=== PATIENT | male | born 1940 | race Caucasian/White ===

== ENCOUNTER → 2017-05-04 08:07 | Outpatient (CLI) | payer MEDICARE, BC ==
[2012-07-02 12:29] VITALS: BMI 25.1
== END | disposition home or self-care (01) ==
LOC: D.MRI 04-28 15:00
DX: R97.20 Elevated prostate specific antigen [PSA] (principal)

== ENCOUNTER → 2017-12-21 13:37 | Outpatient (CLI) | payer MEDICARE, BC ==
[2012-07-02 12:29] VITALS: BMI 25.1
== END | disposition home or self-care (01) ==
LOC: D.CT 13:30
DX: R93.5 Abnormal findings on diagnostic imaging of other abdominal regions, including retroperitoneum (principal)

== ENCOUNTER 2018-02-25 09:00 | Inpatient (IN) | payer MEDICARE, BC ==
[~2018-02-25] VITALS: Ht 182.9 cm; Wt 87.1 kg
--- NOTE | ~2018-02-25 | MORECARE ---
CASE MANAGEMENT DISCHARGE SUMMARY PATIENT: YOSI CARMONA UNIT: [id number] ADM DATE: 02/26/18 AGE: 77 : 42 SEX: M ROOM/BED: D.2203 AUTHOR: GENESIS LAM PHYSICIAN: REFERRING PHYSICIAN: SARIKA MORALES MD DATE OF SERVICE: 03/03/18 Discharge Plan Patient Name: YOSI CARMONA Facility: [facility]:[place] : 1940 Planned Disposition: Home Anticipated Discharge Date: Discharge Date: Expected LOS: Initial Reviewer: [email or web address] Initial Review Date: 02/26/2018 Generated: 03/03/18 12:41 pm Comments DCP- Discharge Planning Updated by [email or web address]: Amairani Welch on 03/03/18 10:[address] Patient Name: YOSI CARMONA Encounter No: [id number] : 1940 Primary Insurance: MEDICARE A & B Anticipated DC Date: Planned Disposition: Home External Planned Provider: : DCP follow-up note: Patient and family in agreement with discharge plan. No changes to plan. Case management will follow and assist as needed. Amairani Welch DCP- Discharge Planning Updated by [email or web address]: Amairani Welch on 03/02/18 11:[address] Patient Name: YOSI CARMONA Admission Status: Elective Accout number: [id number] Admission Date: 02-26-2018 : 1940 Admission Diagnosis:POLYP OF COLON Attending: SARIKA MORALES Current LOS: 4 Anticipated DC Date: Planned Disposition: Home Primary Insurance: MEDICARE A & B Discharge Planning Comments: CM met with patient to assess discharge planning needs. Patient stated that he is independent with his care at home. His will be his driver guide home. He does not use any DME or HH services and does not think he will need anything when he is discharged home. [facility] served and explained. CM will continue to follow and assist with DC planning Hospitalist Physician: Amairani Welch DCPIA - Discharge Planning Initial Assessment Updated by [email or web address]: Amairani Welch on 03/02/18 12:20 pm * Is the patient Alert and Oriented? Yes * How many steps to enter\exit or inside your home? * PCP ASHISH * Pharmacy [address] * Preadmission Environment Home with Family * ADLs Independent * Equipment None * List name and contact numbers for known caregivers / representatives who currently or will assist patient after discharge: DAVINA () [phone] * Verbal permission to speak to the caregivers and representatives has been obtained from the patient. N/A * Community resources currently utilized None * Additional services required to return to the preadmission environment? No * Can the patient safely return to the preadmission environment? Yes * Has this patient been hospitalized within the prior 30 days at any hospital? No Coverage Notice Reviewer: [email or web address] Jana Welch Notice Issued Date-Time: 03/02/2018 11:55 Notice Type: IM Discharge Notice Notice Delivered To: Patient Relationship to Patient: Tube Laser Operator Name: Delivery Method: HAND - Hand Delivered Mary Days: Prior Verbal Notification: Recipient Understood Notice: Yes Recipient Signature: Yes Med Rec Note Co-signed by Attending: Coverage Notice Comment: Last DP export: 03/02/18 11:35 Patient Name: YOSI CARMONA Page [id number] at 1141 All edits/amendments must be made on the electronic document DICTATION DATE: 03/03/18 1141 CINDER MAN: DANIEL 03/03/18 1141 RPT#: [id number] DC DATE: STATUS: ADM IN [facility] [address] [place] [address] END OF REPORT
--- NOTE | ~2018-02-25 | MORECARE ---
CASE MANAGEMENT DISCHARGE SUMMARY PATIENT: YOSI CARMONA UNIT: [id number] ADM DATE: 02/26/18 AGE: 77 : 42 SEX: M ROOM/BED: D.2203 AUTHOR: GENESIS LAM PHYSICIAN: REFERRING PHYSICIAN: SARIKA MORALES MD DATE OF SERVICE: 03/02/18 Discharge Plan Patient Name: YOSI CARMONA Facility: [facility]:[place] : 1940 Planned Disposition: Home Anticipated Discharge Date: Discharge Date: Expected LOS: Initial Reviewer: [email or web address] Initial Review Date: 02/26/2018 Generated: 03/02/18 1:35 pm Comments DCP- Discharge Planning Updated by [email or web address]: Amairani Welch on 03/02/18 11:[address] Patient Name: YOSI CARMONA Admission Status: Elective Accout number: [id number] Admission Date: 02-26-2018 : 1940 Admission Diagnosis:POLYP OF COLON Attending: SARKIA MORALES Current LOS: 4 Anticipated DC Date: Planned Disposition: Home Primary Insurance: MEDICARE A & B Discharge Planning Comments: CM met with patient to assess discharge planning needs. Patient stated that he is independent with his care at home. His will be his winch driver home. He does not use any DME or HH services and does not think he will need anything when he is discharged home. [facility] served and explained. CM will continue to follow and assist with DC planning Toll Lineman: Amairani Welch DCPIA - Discharge Planning Initial Assessment Updated by [id number]: Amairani Welch on 03/02/18 12:20 pm * Is the patient Alert and Oriented? Yes * How many steps to enter\exit or inside your home? * PCP ASHISH * Pharmacy [address] * Preadmission Environment Home with Family * ADLs Independent * Equipment None * List name and contact numbers for known caregivers / representatives who currently or will assist patient after discharge: DAVINA () [phone] * Verbal permission to speak to the caregivers and representatives has been obtained from the patient. N/A * Community resources currently utilized None * Additional services required to return to the preadmission environment? No * Can the patient safely return to the preadmission environment? Yes * Has this patient been hospitalized within the prior 30 days at any hospital? No Coverage Notice Reviewer: [id number] Jana Welch Notice Issued Date-Time: 03/02/2018 11:55 Notice Type: IM Discharge Notice Notice Delivered To: Patient Relationship to Patient: Phlebotomy Tech Name: Delivery Method: HAND - Hand Delivered Mary Days: Prior Verbal Notification: Recipient Understood Notice: Yes Recipient Signature: Yes Med Rec Note Co-signed by Attending: Coverage Notice Comment: Last DP export: 03/02/18 11:27 Patient Name: YOSI CARMONA Page [id number] at 1235 All edits/amendments must be made on the electronic document DICTATION DATE: 03/02/18 1235 COMPENSATION AND BENEFITS MANAGER: DANIEL 03/02/18 1235 RPT#: [id number] DC DATE: STATUS: ADM IN [facility] [address] [place] [address] END OF REPORT
--- NOTE | ~2018-02-25 | MORECARE ---
CASE MANAGEMENT DISCHARGE SUMMARY PATIENT: YOSI CARMONA UNIT: [id number] ADM DATE: 02/26/18 AGE: 77 : 42 SEX: M ROOM/BED: D.2203 AUTHOR: GENESIS LAM PHYSICIAN: REFERRING PHYSICIAN: SARIKA MORALES MD DATE OF SERVICE: 03/02/18 Discharge Plan Patient Name: YOSI CARMONA Facility: [facility]:[place] : 1940 Planned Disposition: Home Anticipated Discharge Date: Discharge Date: Expected LOS: Initial Reviewer: [email or web address] Initial Review Date: 02/26/2018 Generated: 03/02/18 1:27 pm DCPIA - Discharge Planning Initial Assessment Updated by [email or web address]: Amairani Welch on 03/02/18 12:20 pm * Is the patient Alert and Oriented? Yes * How many steps to enter\exit or inside your home? * PCP ASHISH * Pharmacy [address] * Preadmission Environment Home with Family * ADLs Independent * Equipment None * List name and contact numbers for known caregivers / representatives who currently or will assist patient after discharge: DAVINA () [phone] * Verbal permission to speak to the caregivers and representatives has been obtained from the patient. N/A * Community resources currently utilized None * Additional services required to return to the preadmission environment? No * Can the patient safely return to the preadmission environment? Yes * Has this patient been hospitalized within the prior 30 days at any hospital? No Coverage Notice Reviewer: [id number] - Amairani Welch Notice Issued Date-Time: 03/02/2018 11:55 Notice Type: IM Discharge Notice Notice Delivered To: Patient Relationship to Patient: Salesperson Flying Squad Name: Delivery Method: HAND - Hand Delivered Mary Days: Prior Verbal Notification: Recipient Understood Notice: Yes Recipient Signature: Yes Med Rec Note Co-signed by Attending: Coverage Notice Comment: Last DP export: 03/02/18 11:19 Patient Name: YOSI CARMONA Page [id number] at 1227 All edits/amendments must be made on the electronic document DICTATION DATE: 03/02/18 1227 CRIB TENDER: DM 03/02/18 1227 RPT#: [id number] DC DATE: STATUS: ADM IN [facility] [address] [place] [address] END OF REPORT
--- NOTE | ~2018-02-25 | MORECARE ---
CASE MANAGEMENT DISCHARGE SUMMARY PATIENT: YOSI CARMONA UNIT: [id number] ADM DATE: 02/26/18 AGE: 77 : 42 SEX: M ROOM/BED: D.2203 AUTHOR: GENESIS LAM PHYSICIAN: REFERRING PHYSICIAN: SARIKA MORALES MD DATE OF SERVICE: 03/02/18 Discharge Plan Patient Name: YOSI CARMONA Facility: [facility]:[place] : 1940 Planned Disposition: Home Anticipated Discharge Date: Discharge Date: Expected LOS: Initial Reviewer: [email or web address] Initial Review Date: 02/26/2018 Generated: 03/02/18 1:19 pm Coverage Notice Reviewer: [id number] - Amairani Welch Notice Issued Date-Time: 03/02/2018 11:55 Notice Type: IM Discharge Notice Notice Delivered To: Patient Relationship to Patient: Licensed Sales Assistant Name: Delivery Method: HAND - Hand Delivered Mary Days: Prior Verbal Notification: Recipient Understood Notice: Yes Recipient Signature: Yes Med Rec Note Co-signed by Attending: Coverage Notice Comment: Patient Name: YOSI CARMONA Page [id number] at 1219 All edits/amendments must be made on the electronic document DICTATION DATE: 03/02/181217 ACCOUNT MANAGEMENT ASSISTANT: DANIEL 03/02/181217 RPT#: [id number] DC DATE: STATUS: ADM IN [place] [address] [place] [address] END OF REPORT
--- NOTE | ~2018-02-25 | OP ---
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 Extensive intra-abdominal adhesions, multiple midline incisional hernias, which are incarcerated with omental fat. PROCEDURE: Laparoscopic cecectomy with conversion to hand-assisted laparoscopic surgery - right colectomy. SURGEON: Sarika Morales MD SURFACER: None. BLOOD LOSS: 100 cc. ANESTHESIA: General. COMPLICATIONS: None. The risks, possible complications and alternatives to procedure were explained to the patient. He elects to proceed. The discussion specifically included, but was not limited to, bleeding requiring emergency reoperation, infection, colostomy formation, possible need for chemotherapy. OPERATIVE COURSE: The patient was conveyed to the operating room electively on 02/27/2018. General anesthesia was induced by the anesthesia staff. The abdomen was sterilely prepped and draped. A small skin erlin was accomplished in the left upper quadrant. Through the skin erlin, a Veress needle was advanced. CO2 insufflation was begun. Once a sufficient pneumoperitoneum had been achieved, a 5-mm trocar was inserted through this incision. Under direct internal vision utilizing a television camera, another 5-mm trocar was inserted this time in the left lower quadrant. There were numerous intra-abdominal adhesions. I began to take these adhesions down. Portions of incarcerated omental fat within hernias were reduced. I did not attempt to perform a hernia repair as this would have ruin necessitated either a midline incision and/or mesh and this will be contraindicated in this case where there is going to be division of the large intestine. I began to take down these adhesions. Once I freed up enough adhesions around the umbilicus, I accomplished an incision through the patient's midline scar. Sharp dissection was carried down through the area where there was a hernia defect. Through this hernia defect, I advanced a 12-mm trocar. I then began to incise along the right white line of Toldt. Utilizing the Harmonic scalpel, I took down the mesoappendix. I grasped the appendix and retracted caudad and then stapled across the cecum just inferior to the ileocecal valve with an Endo-XIOMY type stapler utilizing blue loads. I then placed this appendix and cecectomy specimen within a retrieval bag and withdrew it through the 12-mm trocar site. I opened up the specimen on the back table and it did not contain OPERATIVE REPORT [id number] YOSI CARMOAN the polyp that we were going after. I then chose to proceed with a hand-assisted right colectomy. I rescrubbed and redraped. A transverse incision was accomplished between the right costal margin and the anterior superior iliac spine. Sharp dissection was carried down through skin and subcutaneous tissues. I then cleaned the subcutaneous tissues from the underlying external oblique muscle and fascia. I then bluntly dissected down through the internal oblique and transversus abdominis muscles. The peritoneal cavity was entered sharply. An Randy retractor was placed. Over the Randy retractor, a Gelport was placed. Through the Gelport, I inserted my hand. I then continued my division along the right white line of Toldt. I took down some of the retroperitoneal adhesions at the hepatic flexure as well. I took off the Gelport. I exteriorized the right colon. I swept down the duodenum as well as the ureter, which were undamaged during the operation. A window was created in the mesentery of the small bowel. I stapled across the ileum with a XIOMY-75 stapler. I then created a window in the mesentery of the proximal transverse colon. I then stapled across the colon here with a XIOMY-75 stapler. The interposed mesentery was taken down with the Super Jaw EnSeal device, which were ligated and divided the mesentery and its vessels. I opened up the specimen on the back table. It did contain the polyp that we were concerned about, which was very close to the staple line from the cecectomy. I rescrubbed and redraped. I then brought the small bowel and the transverse colon into apposition and I sutured their antimesenteric borders together with interrupted 3-0 Vicryl sutures. I closed the mesenteric rent with a running #1 Vicryl. A small enterotomy and small colotomy were accomplished. Anvils of the XIOMY-75 stapler were advanced and then fired. The resulting intracolonic defect was closed with a single firing of the TA-60 stapler. I ensured the small bowel was not twisted on its mesentery. I irrigated and aspirated after returning the anastomosis to the abdominal cavity. There was no bleeding. The Randy retractor was removed. The internal oblique and transverse abdominis muscles were approximated with running #1 Vicryls. The external oblique muscle and aponeurosis were closed with running #1 Vicryls. The deep adipose tissue was closed with interrupted 3-0 Vicryls. The skin was closed with a running intracuticular 3-0 Vicryl. At the trocar site near the umbilicus, I closed the fascia with a horizontal mattress #1 Vicryl. The subdermis was approximated with interrupted 3-0 Vicryls. The skin was approximated with a running intracuticular 3-0 Vicryl. The other 2 trocar sites were closed with interrupted intracuticular 3-0 Vicryls. Benzoin and Steri-Strips were applied. The patient was then extubated and conveyed to post-anesthesia care unit where he was in stable condition. TRANSINT:[id number] Voice Confirmation ID: [id number] DOCUMENT ID: [id number] OPERATIVE REPORT [id number] YOSI CARMONA, SARIKA LEACH at 2213 CC: LUIS HINOJOSA DO, BOWEN, TIMOTHY E M.D. and HAILE ARROYO [id number] DICTATION DATE: 02/27/18 0359 DIGITAL MARKETING ASSOCIATE: 02/27/18 0620 ADM IN [facility] [address] [place] [address]
[~2018-02-25 09:00] MED LIST: BAYER CHEWABLE81 MG PO; LIPITOR80 MG PO; LOSARTAN-HCTZ1 EAC2 PO
[2018-02-25 09:14] LABS: HEMOGLOBIN 14.7 g/dL (13.5-17.5); MCHC 34.2 g/dL (31.0-37.0); MCV 96.6 fL (80.0-100.0); MEAN PLATELET VOLUME 11.2 fL (7.4-10.4); RBC 4.45 10x6/uL (4.20-6.10); RDW 14.3 % (11.5-14.5); WBC 6.8 10x3/uL (4.8-10.8)
[2018-02-26 12:27] VITALS: BP 141/72; BMI 26.9
[2018-02-26 22:15] VITALS: BMI 26.1
[2018-02-27] VITALS: BP 169/84
[2018-02-27 04:31] VITALS: BP 159/73
[2018-02-27 08:36] VITALS: BP 144/64
[2018-02-27 08:55] VITALS: Ht 182.9 cm; Wt 87.1 kg
[2018-02-27 13:15] VITALS: BP 151/57
[2018-02-27 16:44] VITALS: BP 157/72
[2018-02-27 20:00] VITALS: BP 139/65
[2018-02-28] VITALS (8 sets, daily range): BP systolic 119–183; BP diastolic 64–82
[2018-02-28 06:10] LABS: BASOPHILS 0.3 % (0-2); EOSINOPHILS 0.9 % (0-7); HEMATOCRIT 39.7 % (42.0-54.0); HEMOGLOBIN 13.1 g/dL (13.5-17.5); IMMATURE GRANULOCYTES 0.1 % (0-5); LYMPHOCYTES 25.9 % (15-50); MCH 32.3 pg (26.0-34.0); MEAN PLATELET VOLUME 11.2 fL (7.4-10.4); MONOCYTES 9.8 % (2-11); PLATELET COUNT 121 10x3/uL (130-400); RBC 4.05 10x6/uL (4.20-6.10); RDW 14.3 % (11.5-14.5); WBC 6.7 10x3/uL (4.8-10.8)
[2018-02-28 07:04] LABS: ALBUMIN 2.6 g/dL (3.4-5.0); ANION GAP 18.9 mmol/L (8-16); BILIRUBIN - TOTAL 0.59 mg/dL (0.2-1.3); CALCIUM 7.8 mg/dL (8.5-10.1); CARBON DIOXIDE 21.1 mmol/L (21.0-32.0); CREATININE - SERUM 1.2 mg/dL (0.6-1.3); MAGNESIUM - SERUM 1.5 mg/dL (1.8-2.4); PHOSPHOROUS 2.5 mg/dL (2.5-4.9); PROTEIN - SERUM 6.4 g/dL (6.4-8.2)
[2018-02-28 07:07] LABS: TROPONIN-I 0.079 ng/mL (0.000-0.060)
[2018-03-01] MEDS ORDERED: COZAAR100 MG PO (01:14)
[2018-03-01] MEDS ORDERED: HYDROCHLOROTH12.5 M1 PO (01:20)
[2018-03-01] MEDS ORDERED: LIPITOR10 MG PO (01:24)
[2018-03-01 04:00] VITALS: BP 186/85
[2018-03-01 08:42] VITALS: BP 187/75
[2018-03-01 12:25] VITALS: BP 170/87
[2018-03-01 16:27] VITALS: BP 137/80
[2018-03-01 20:00] VITALS: BP 152/82
[2018-03-02 05:00] VITALS: BP 164/83
[2018-03-02 08:21] VITALS: BP 140/62
[2018-03-02 12:28] VITALS: BP 127/64
[2018-03-02 16:50] VITALS: BP 122/53
[2018-03-02 20:00] VITALS: BP 151/68
[2018-03-03] VITALS: BP 140/64
[2018-03-03 04:00] VITALS: BP 156/80
[2018-03-03 08:34] VITALS: BP 136/72
[2018-03-03] MEDS ORDERED: HYDROCODON-ACE1 EAC7 PO (11:14)
== END 2018-03-03 13:04 | disposition home or self-care (01) | DRG 331 ==
LOC: D.MS 02-26 11:15 → D.SDCHOLD 02-26 11:15 → D.MS 02-26 22:03
PROVIDERS: Anesthesiology; Surgery
PROC: 0DTF0ZZ Resection of Right Large Intestine, Open Approach (ICD-10-PCS; principal; 2018-02-26)
DX: K63.5 Polyp of colon (principal); I10 Essential (primary) hypertension; K66.0 Peritoneal adhesions (postprocedural) (postinfection); K43.2 Incisional hernia without obstruction or gangrene

== ENCOUNTER → 2018-07-16 09:16 | Outpatient (CLI) | payer MEDICARE, BC ==
[2018-02-27 08:55] VITALS: BMI 26.0
[~2018-07-16 09:16] MED LIST changes: +COZAAR100 MG PO; +HYDROCHLOROTH12.5 M1 PO; +HYDROCODON-ACE1 EAC7 PO; +LIPITOR10 MG PO
== END | disposition home or self-care (01) ==
LOC: D.US 09:00
PROVIDERS: ATTEND Internal Medicine Gastroenterology
DX: R93.5 Abnormal findings on diagnostic imaging of other abdominal regions, including retroperitoneum (principal); K76.89 Other specified diseases of liver

== ENCOUNTER 2020-08-13 01:35 | Inpatient (IN) | payer MEDICARE, BC ==
[2020-08-13] VITALS (61 sets, daily range): BP systolic 82–162; BP diastolic 39–107; BMI 27.1
[~2020-08-13] VITALS: Ht 182.9 cm; Wt 99.8 kg
--- NOTE | 2020-08-13 01:45 | NUR ---
CODE SEPSIS PAGED
--- NOTE | 2020-08-13 01:45 | NUR ---
PT HAS LITER BAG LR HANGING PER EMS
[2020-08-13 02:32] LABS: BASOPHILS 0.2 % (0-2); EOSINOPHILS 0 % (0-7); HEMATOCRIT 40.2 % (42.0-54.0); HEMOGLOBIN 13.5 g/dL (13.5-17.5); LYMPHOCYTES 4.7 % (15-50); MCH 31.9 pg (26.0-34.0); MCHC 33.5 g/dL (31.0-37.0); MCV 95.2 fL (80.0-100.0); MEAN PLATELET VOLUME 9.3 fL (7.4-10.4); MONOCYTES 1.6 % (2-11); NEUTROPHILS 93.5 % (40-80); PLATELET COUNT 124 10x3/uL (130-400); RBC 4.22 10x6/uL (4.20-6.10); RDW 14.1 % (11.5-14.5); WBC 11.3 10x3/uL (4.8-10.8)
[2020-08-13 02:38] LABS: APTT 42.5 SECONDS (22.8-39.4); CALC OSMOLALITY 284 mosm/kg (275-300); CALCIUM 8.6 mg/dL (8.5-10.1); CARBON DIOXIDE 26.6 mmol/L (21.0-32.0); CHLORIDE - SERUM 100 mmol/L (98-107); CREATININE - SERUM 2.3 mg/dL (0.6-1.3); INR 1.42 (0.85-1.17); POTASSIUM - SERUM 4.3 mmol/L (3.5-5.1); SODIUM 136 mmol/L (136-145); UREA NITROGEN 40 mg/dL (7-18); eGFR NON AFRICAN AMERICAN 29 mL/min (90-120)
[2020-08-13 02:44] LABS: GLUCOSE 145 mg/dL (74-106)
[2020-08-13 02:53] LABS: INFLUENZA TYPE A NEGATIVE (NEGATIVE); INFLUENZA TYPE B NEGATIVE (NEGATIVE)
[2020-08-13 02:54] LABS: SARS-CoV-2 ANTIGEN NEGATIVE- SARS-COV-2 (NEGATIVE)
[2020-08-13 02:58] LABS: ALKALINE PHOSPHATASE 53 U/L (30-120); ALT (SGPT) 24 U/L (10-68); BILIRUBIN - TOTAL 0.62 mg/dL (0.2-1.3); CKMB 2.5 U/L (0.0-3.6); PRO BNP 2835 pg/mL (0-450); PROTEIN - SERUM 7.6 g/dL (6.4-8.2)
[2020-08-13 03:06] LABS: ALBUMIN 2.5 g/dL (3.4-5.0); CREATINE KINASE 825 UL (21-232)
[2020-08-13 03:09] LABS: TROPONIN-I 0.581 ng/mL (0.000-0.060)
--- NOTE | 2020-08-13 05:00 | NUR ---
INFORMED MD OF PT PRESSURE, SAID TO JUST KEEP AN EYE ON IT
--- NOTE | 2020-08-13 06:37 | NUR ---
PT PRESSURE DROPPING - CALLED [facility], PERFORMED EKG AND LOWERED CARDIZEM
--- NOTE | 2020-08-13 07:00 | NUR ---
TALKED WITH STATES [facility] TO CALL GROUP TO GET PT TO ICU AND CONSULT CARDIO
--- NOTE | 2020-08-13 07:13 | NUR ---
TALKED WITH DR KEENE, TOLD TO STOP CARDIZEM AND GIVE 150 OF AMIO OVER 10 MINS AND START A DRIP OF AMIO AT 2
--- NOTE | 2020-08-13 08:30 | NUR ---
NEW PATIENT ADMIT FROM ED. PATIENT TRANSPORTED VIA HOSPITAL BED ACCOMPANIED BY ED STAFF. PATIENT IS AWAKE, ALERT AND ORIENTED X 4. PATIENT DENIES ANY NEEDS OR PAIN. ASSESSMENT COMPLETED SEE FORM FOR DETAILS. WILL CONTNUE WITH PLAN OF CARE. SR UP X 2 BED IN LOW POSITION AND CALL LIGHT IN REACH.
--- NOTE | 2020-08-13 08:44 | NUR ---
AMIODARONE GTT STOPPED AT 0825 IN ER AND CONT'D IN ICU
--- NOTE | 2020-08-13 09:00 | NUR ---
CONSULTED DR LAZCANO. INFORMED OF AFIB AND HR 120-160'S. INSTRUCTED TO CONTINUE AFIB DRIP, HOLD HEPARIN IV MEDS AND GIVE DIGOXIN 0.5MG IV.
--- NOTE | 2020-08-13 10:00 | NUR ---
SAEED AT BS.
[2020-08-13 10:39] LABS: TROPONIN-I 0.386 ng/mL (0.000-0.060)
--- NOTE | 2020-08-13 12:00 | NUR ---
DR LAZCANO IN ROOM.NEW ORDERS RECEIVED.
--- NOTE | 2020-08-13 13:45 | NUR ---
CALLED DR LAZCANO. HR IN 150'S. NEW ORDER RECEIVED FOR CARDIAZEM 10 MG IV SLOW PUSH.
--- NOTE | 2020-08-13 15:00 | NUR ---
PATIENT STILL AFIB RVR AT 152. CALLED DR LAZCANO. NO NEW ORDERS RECIEVED. DR LAZCANO STATED THAT HE WILL SEE PATIENT TOMORROW AND PROCEED WITH CARDIOVERSION TOMORROW.
--- NOTE | 2020-08-13 18:00 | NUR ---
PATIENT HVING DIFFICULTY USING URINAL. BED LINEN CHANGED X 2. CONDOM CATH PLACED FOR COMFORT.
[2020-08-14] VITALS (34 sets, daily range): BP systolic 94–144; BP diastolic 53–99
[2020-08-14 04:15] LABS: BASOPHILS 0.1 % (0-2); EOSINOPHILS 0 % (0-7); HEMOGLOBIN 13.3 g/dL (13.5-17.5); LYMPHOCYTES 0.9 % (15-50); MCH 31.5 pg (26.0-34.0); MCHC 33.2 g/dL (31.0-37.0); MCV 94.8 fL (80.0-100.0); MEAN PLATELET VOLUME 9.7 fL (7.4-10.4); MONOCYTES 0.4 % (2-11); NEUTROPHILS 98.6 % (40-80); PLATELET COUNT 118 10x3/uL (130-400); RBC 4.22 10x6/uL (4.20-6.10); RDW 14.3 % (11.5-14.5)
[2020-08-14 04:20] LABS: WBC 16.2 10x3/uL (4.8-10.8)
[2020-08-14 04:31] LABS: ANION GAP 16.2 mmol/L (8-16); CALCIUM 7.5 mg/dL (8.5-10.1); CARBON DIOXIDE 20.4 mmol/L (21.0-32.0); CREATININE - SERUM 1.9 mg/dL (0.6-1.3); MAGNESIUM - SERUM 1.8 mg/dL (1.8-2.4); PHOSPHOROUS 3.1 mg/dL (2.5-4.9); POTASSIUM - SERUM 4.6 mmol/L (3.5-5.1)
--- NOTE | 2020-08-14 06:33 | NUR ---
Shift summary: Patient converted to SR HR 80-90s at about 0430, remains on 0.5mg/min Amiodarone drip. Increased oxygen to 4LNC for to maintain O2sat>92%, some dyspnea at rest. Denies pain.
--- NOTE | 2020-08-14 07:00 | NUR ---
RECEIVED BEDSIDE REPORT ON PATIENT AND ASSUMED CARE. PATIENT SITTING UP IN BED, NC AT 4 LPM O2 WITH SPO2 95%, CM - HR 84 NS, CONDOM CATH IN PLACE WITH CLEAR YELLOW UOP NOTED. IV 20 GA TO LEFT FA WITH NS AT 100 ML/HR AND AMIODARONEAT 0.5 MG/HR (16.7 ML/HR). BBS - EXPIRATORY WHEEZES NOTED. HEAD TO TOE ASSESSMENT COMPLETED.
--- NOTE | 2020-08-14 08:44 | NUR ---
DR. LAZCANO AT ROOM UPDATED AND EXAMINES PATIENT.
--- NOTE | 2020-08-14 08:51 | NUR ---
PER DR. SIMMONS TO TRANSFER TO PCU AND TO STOP THE AMIODARONE GTT WHEN BAG IS COMPLETED.
--- NOTE | 2020-08-14 09:15 | NUR ---
DR. BALDWIN AT ROOM UPDATED AND EXAMINES PATIENT.
--- NOTE | 2020-08-14 10:49 | NUR ---
HANDOFF REPORT GIVEN TO FEDE MILLAN.
--- NOTE | 2020-08-14 17:07 | NUR ---
TRANSFERED TO ROOM 2133 FROM ICU, FLUIDS OF NORMAL SALINE AT 100, OXYGEN AT 4 LTS. AWAKE, ALERT AND ORIENT. REQUEST CONDOM CATH BE REPLACED. AT BEDSIDE.
--- NOTE | 2020-08-14 23:13 | NUR ---
2129--PT SITTING UP IN BED. O2 @4L/NC.. WET COUGH, NONPRODUCTIVE UNABLE TO COMPLETE COUGH. IS & FLUTTER DONE. AT BEDSIDE & MAKING PT DO THEM. O2 SAT 87% O 4L/NC, INCREASED O2 TO 8L/NC--SAT 92% ENCOURAGED TO COUGH & DEEP BREATH FREQUENTLY
[2020-08-15] VITALS: BP 120/63
[2020-08-15 04:00] VITALS: BP 128/65
--- NOTE | 2020-08-15 07:10 | NUR ---
PT LYING IN BED WITH HOB ELEVATED 45 DEGREES. RESP EVEN AND UNLABORED. O2 VIA HF AT [address] AAO X4[address] DENIES NEEDS AT THIS TIME. CLIR. BED IN LOWEST POSITION. SIDE RAILS X2. SCDs IN PLACE
[2020-08-15 07:52] LABS: ALBUMIN 1.8 g/dL (3.4-5.0); ANION GAP 13.8 mmol/L (8-16); BILIRUBIN - TOTAL 0.42 mg/dL (0.2-1.3); CARBON DIOXIDE 23.8 mmol/L (21.0-32.0); CREATININE - SERUM 1.6 mg/dL (0.6-1.3); POTASSIUM - SERUM 4.6 mmol/L (3.5-5.1); PROTEIN - SERUM 7.1 g/dL (6.4-8.2); VANCOMYCIN - RANDOM 13.8 ug/mL (10.0-20.0)
[2020-08-15 08:00] LABS: HEMATOCRIT 41.4 % (42.0-54.0); HEMOGLOBIN 13.8 g/dL (13.5-17.5); MCH 31.7 pg (26.0-34.0); MCHC 33.3 g/dL (31.0-37.0); MCV 95.3 fL (80.0-100.0); MEAN PLATELET VOLUME 10.8 fL (7.4-10.4); PLATELET COUNT 151 10x3/uL (130-400); RBC 4.35 10x6/uL (4.20-6.10); RDW 14.7 % (11.5-14.5); WBC 21.5 10x3/uL (4.8-10.8)
[2020-08-15 08:46] LABS: LYMPHOCYTES 2 % (15-50); NEUTROPHILS 69 % (40-80); PLATELET ESTIMATE NORMAL
[2020-08-15 09:49] VITALS: BP 127/71
[2020-08-15 12:00] VITALS: BP 125/61
--- NOTE | 2020-08-15 14:27 | CN ---
PATIENT NAME:YOSI CARMONA MEDICAL RECORD: [id number] : 44 LOCATION:D. D.2133 ADMIT DATE: 08/13/20 ACCOUNT: [id number] CONSULTING PHYSICIAN: ALFREDO LAZCANO MD REFERRING PHYSICIAN: BINA KEENE MD DATE OF CONSULTATION: 08/13/2020 HISTORY OF PRESENT ILLNESS: A 79-year-old gentleman with a history of coronary artery disease, status post intervention via Dr. Bergman, been feeling ill for a couple of days, was seen in the ER with cough, fever, chills, syncope, subsequently found to be in atrial flutter, appears to be with variable block as well as elevated troponin. We were asked to see him concerning his cardiovascular status. Of note, COVID is negative at this point. Rate is still tachy at 150. Currently, he is actually feeling better with fluids hydration. PAST MEDICAL HISTORY: Includes; 1. History of hypertension. 2. Hyperlipidemia. ALLERGIES: PENICILLIN. SOCIAL HISTORY: Nonsmoker. Social alcohol use. Does try to exercise on a regular basis. FAMILY HISTORY: He does have a family history of coronary artery disease. MEDICATIONS: Include atorvastatin 10 mg p.o. every day, losartan 100 mg p.o. every day, HCTZ 12.5 every day, aspirin 81 every day. REVIEW OF SYSTEMS: The patient reports easy bruising but reports no swollen glands. The patient reports no fever, no night sweats, no significant weight gain, no significant weight loss. No significant exercise tolerance. The patient reports no dry eyes, no irritation, no vision change. Patient reports no difficulty hearing and no ear pain. Patient reports no frequent nose bleeds or nose and sinus problems. Patient reports on arm pain on exertion. No shortness of breath while lying down. No history of heart murmur. Patient reports no cough, no wheezing or coughing up blood. Patient reports no abdominal pain, no vomiting. Normal appetite. No diarrhea and not vomiting blood. No nausea and no constipation. Patient reports no incontinence. No difficulty urinating. No hematuria. No increased frequency. Patient reports no muscle aches. No weakness, no arthralgias, no back pain. No swelling of the extremities. Patient reports no abnormal mole, no jaundice, no rashes. Reports no loss of consciousness. No weakness and no numbness. No seizures, dizziness, or headaches. The patient reports no depression, no sleep disturbance, feeling safe in a relationship and no alcohol abuse. Patient reports on fatigue. Reports no runny nose or sinus pressure. No itching, no hives, and no frequent sneezing. PHYSICAL EXAMINATION: GENERAL: Actually in no acute distress, appears stated age, alert and oriented. VITAL SIGNS: Heart rate is 146, regular; blood pressure 92/69. HEENT: Normocephalic, atraumatic. NECK: No JVD or bruit. HEART: Regular, tachycardic, II/ systolic ejection murmur. LUNGS: Slightly few expiratory wheezes, but actually fairly good air movement. CONSULT REPORT [id number] YOSI CARMONA ABDOMEN: Soft and nontender. EXTREMITIES: Pulses 2+ with no edema. NEUROLOGIC: Grossly intact. DIAGNOSTIC DATA: EKG shows atrial flutter, variable block, nonspecific ST-T changes. IMPRESSION: Atrial flutter, non-ST segment elevation myocardial infarction, suspect this is a more demand type ischemic type 2 myocardial infarction. At this point in time, given his pressures, we will use amiodarone and digoxin for rate control hopefully to establish chemical cardioversion. We will check echocardiographic study for focal wall motion. Further recommendations based on the above. TRANSINT:[id number] Voice Confirmation ID: [id number] DOCUMENT ID: [id number] ALFREDO LAZCANO MD at 1427 CC: [id number] DICTATION DATE: 08/13/20 1209 SERVICENOW ADMINISTRATOR: 08/13/20 1521 ADM IN [facility] [address] [place] [address]
--- NOTE | 2020-08-15 14:28 | EC ---
PATIENT:YOSI CARMONA DATE OF SERVICE: 08/13/20 SEX: M MEDICAL RECORD: [id number] DATE OF : 44 LOCATION:D.M2 D.213 AGE OF PATIENT: 79 ADMISSION DATE: 08/13/20 REFERRING PHYSICIAN: INTERPRETING PHYSICIAN: ALFREDO LAZCANO MD ECHOCARDIOGRAM REPORT ECHO CHARGES 4 ECHO COMPLETE Date: 08/13/20 CLINICAL DIAGNOSIS: ATRIAL FIB ECHOCARDIOGRAPHIC MEASUREMENTS (adult normal given) AC root (d.<3.7cm) 2.8 cm LV Septum d (<1.2 cm> 1.0 cm Valve Excursion 1.2 cm LV Septum (systole) 1.2 cm Left Atria (s.<4.0cm> 3.6 cm LVPW d(<1.2cm) 1.1 cm RV (d.<2.3cm) 4.4 cm LVPW (sytole) 1.2 cm LV diastole(<5.6CM) 4.8 cm MV E-F(>70mm/sec) cm LV systole 3.8 cm LVOT Diameter 1.7 cm MV exc.(>10mm) 2.3 cm Est.ejection fraction (50-75%) % DOPPLER: LVIT cm/sec A cm/sec E 75.0 cm/sec LA cm/sec RVSP 26 mmHg LVOT 68 cm/sec AOP1/2T m/s Asc. Ao 106 cm/sec RVOT 42 cm/sec RA cm/sec PA 88 cm/sec AV Gradient Peak 4.49 mmHg AV Mean 2.58 mmHg AV Area 1.6 cm MV Gradient Peak 4.02 mmHg MV Mean 1.62 mmHg MV Area cm COMMENTS: Science Technician: 2 CHERIE TURCIOS Contract Negotiation Manager: 3 Dr. Martinez TAPE# PACS Pericardial Effusion N DATE OF SERVICE: Adequate 2D, color-flow imaging, spectral Doppler, and M-Mode. FINDINGS: No LVH. LV internal dimensions are normal. Difficult to fully assess focal wall motion secondary to underlying atrial fibrillation with rapid ventricular response. Overall, function is probably at least lower limits of normal to mildly reduced at 45% to 50%. Aortic valve is sclerotic. No evidence of stenosis by Doppler interrogation. Left atrium is normal. Mitral valve shows no prolapse, mild MR. Right-sided chambers were normal. Mild plus TR. ECHOCARDIOGRAM REPORT [id number] YOSI CARMONA TRANSINT:[id number] Voice Confirmation ID: [id number] DOCUMENT ID: [id number] ALFREDO LAZCANO MD at 1428 CC: [id number] DICTATION DATE: 08/14/20 1134 PHYSICAL THERAPIST AIDE: 08/14/20 1347 ADM IN [facility] [address] [id number]
[2020-08-15 15:00] VITALS: BP 129/80
[2020-08-15 20:00] VITALS: BP 132/61
[2020-08-16] VITALS: BP 130/55
[2020-08-16 04:00] VITALS: BP 126/72
[2020-08-16 07:31] LABS: BASOPHILS 0.1 % (0-2); EOSINOPHILS 0.3 % (0-7); HEMATOCRIT 42.1 % (42.0-54.0); HEMOGLOBIN 14.3 g/dL (13.5-17.5); IMMATURE GRANULOCYTES 0.3 % (0-5); LYMPHOCYTE ABS# 0.61 10x3/uL (1.32-3.57); LYMPHOCYTES 4.2 % (15-50); MCH 31.4 pg (26.0-34.0); MONOCYTES 1.1 % (2-11); NEUTROPHIL ABS# 13.78 10x3/uL (1.78-5.38); RBC 4.56 10x6/uL (4.20-6.10); RDW 14.8 % (11.5-14.5)
[2020-08-16 07:32] LABS: MCV 92.3 fL (80.0-100.0); PLATELET COUNT 101 10x3/uL (130-400); WBC 14.7 10x3/uL (4.8-10.8)
--- NOTE | 2020-08-16 08:40 | NUR ---
Lying in bed, awake/alert/oriented, T/R self ad alycia, cont of B/B with BRPs per self ad alycia, denies pain/other discomfort at this time, call light/phone/water within reach, no s/s of acute distress observed.
--- NOTE | 2020-08-16 09:05 | NUR ---
Patient PCR COVID test was negative, Covid isolation may discontinue.
[2020-08-16 09:32] LABS: ALBUMIN 1.5 g/dL (3.4-5.0); ANION GAP 8.3 mmol/L (8-16); BILIRUBIN - TOTAL 0.52 mg/dL (0.2-1.3); CALCIUM 8.1 mg/dL (8.5-10.1); CARBON DIOXIDE 27.8 mmol/L (21.0-32.0); CREATININE - SERUM 1.3 mg/dL (0.6-1.3); POTASSIUM - SERUM 5.1 mmol/L (3.5-5.1); PROTEIN - SERUM 6.3 g/dL (6.4-8.2); VANCOMYCIN - RANDOM 11.1 ug/mL (10.0-20.0)
[2020-08-16 11:05] VITALS: BP 125/52
[2020-08-16 16:04] VITALS: BP 135/59
[2020-08-16 19:57] VITALS: BP 111/62
[2020-08-16 23:13] VITALS: BP 117/57
[2020-08-17 06:38] LABS: ALBUMIN 1.5 g/dL (3.4-5.0); ANION GAP 10.6 mmol/L (8-16); BILIRUBIN - TOTAL 0.56 mg/dL (0.2-1.3); CALCIUM 8.1 mg/dL (8.5-10.1); CARBON DIOXIDE 25.2 mmol/L (21.0-32.0); CREATININE - SERUM 1.1 mg/dL (0.6-1.3); POTASSIUM - SERUM 4.8 mmol/L (3.5-5.1); VANCOMYCIN - RANDOM 13.8 ug/mL (10.0-20.0)
[2020-08-17 06:55] LABS: BASOPHILS 0.3 % (0-2); EOSINOPHILS 0.8 % (0-7); HEMATOCRIT 39.8 % (42.0-54.0); HEMOGLOBIN 13.3 g/dL (13.5-17.5); MCH 31.9 pg (26.0-34.0); MCHC 33.4 g/dL (31.0-37.0); MEAN PLATELET VOLUME 10.4 fL (7.4-10.4); MONOCYTES 1.8 % (2-11); NEUTROPHILS 93.1 % (40-80); RBC 4.16 10x6/uL (4.20-6.10); RDW 15.2 % (11.5-14.5); WBC 12.6 10x3/uL (4.8-10.8)
[2020-08-17 06:59] LABS: MCV 95.6 fL (80.0-100.0); PLATELET COUNT 173 10x3/uL (130-400)
--- NOTE | 2020-08-17 07:30 | NUR ---
Lying in bed, awake/alert/oriented, T/R self ad alycia, cont of B/B with BRPs ad alycia, denies pain/other discomfort at this time, call light/phone/water within reach, no s/s of acute distress observed.
[2020-08-17 15:00] VITALS: BP 134/69
--- NOTE | 2020-08-17 19:15 | NUR ---
RECEIVED REPORT, WILL ASSUME CARE OF PT, DENIES ANY NEEDS AT THIS TIME, BED IS LOW, SRX2, CALL LIGHT IN REACH, AT BEDSIDE, WILL CONTINUE PLAN OF CARE
[2020-08-17 19:53] VITALS: BP 140/55
[2020-08-17 23:38] VITALS: BP 138/68
--- NOTE | 2020-08-18 01:00 | NUR ---
I have reviewed this patient and I concur with the Shift Assessment completed by the Licensed Practical Nurse today this shift.
[2020-08-18 05:04] LABS: BASOPHILS 0.1 % (0-2); EOSINOPHILS 2.3 % (0-7); HEMATOCRIT 39.2 % (42.0-54.0); LYMPHOCYTES 4.7 % (15-50); MCH 31.7 pg (26.0-34.0); MCHC 33.1 g/dL (31.0-37.0); MCV 95.9 fL (80.0-100.0); MEAN PLATELET VOLUME 9.8 fL (7.4-10.4); MONOCYTES 1.8 % (2-11); NEUTROPHILS 91.1 % (40-80); RBC 4.09 10x6/uL (4.20-6.10)
[2020-08-18 05:09] LABS: PLATELET COUNT 208 10x3/uL (130-400)
[2020-08-18 05:21] VITALS: BP 95/59
[2020-08-18 05:26] LABS: ALBUMIN 1.4 g/dL (3.4-5.0); ALKALINE PHOSPHATASE 107 U/L (30-120); BILIRUBIN - TOTAL 0.63 mg/dL (0.2-1.3); CALC OSMOLALITY 272 mosm/kg (275-300); CALCIUM 7.8 mg/dL (8.5-10.1); CARBON DIOXIDE 26.7 mmol/L (21.0-32.0); CHLORIDE - SERUM 103 mmol/L (98-107); GLUCOSE 105 mg/dL (74-106); POTASSIUM - SERUM 4.4 mmol/L (3.5-5.1); PROTEIN - SERUM 5.8 g/dL (6.4-8.2); SODIUM 134 mmol/L (136-145); UREA NITROGEN 27 mg/dL (7-18); VANCOMYCIN - RANDOM 13.1 ug/mL (10.0-20.0); eGFR NON AFRICAN AMERICAN 77 mL/min (90-120)
[2020-08-18 05:34] LABS: ALT (SGPT) 83 U/L (10-68)
--- NOTE | 2020-08-18 07:10 | NUR ---
Lying in bed with eyes closed, respirations slow/deep/even, rouses easily with verbal stimulus, denies pain/other discomfort at this time, call light/phone/water within reach, spouse at bedside, no s/s of acute distress observed.
[2020-08-18 08:38] VITALS: BP 173/78
[2020-08-18 12:03] VITALS: BP 144/56
[2020-08-18 16:04] VITALS: BP 156/62
--- NOTE | 2020-08-18 19:30 | NUR ---
RECEIVED REPORT, WILL ASSUME CARE OF PT, DENIES ANY NEEDS AT THIS TIME, BED IS LOW, SRX2,CALL LIGHT IN REACH, WILL CONTINUE PLAN OF CARE, AT BEDSIDE
[2020-08-18 20:00] VITALS: BP 126/63
--- NOTE | 2020-08-19 03:30 | NUR ---
I have reviewed this patient and I concur with the Shift Assessment completed by the Licensed Practical Nurse today this shift.
[2020-08-19 04:00] VITALS: BP 153/70
[2020-08-19 06:27] LABS: BASOPHILS 0.7 % (0-2); EOSINOPHILS 2.5 % (0-7); HEMATOCRIT 38.4 % (42.0-54.0); HEMOGLOBIN 12.6 g/dL (13.5-17.5); LYMPHOCYTES 7.2 % (15-50); MCH 31.1 pg (26.0-34.0); MCHC 32.9 g/dL (31.0-37.0); MCV 94.4 fL (80.0-100.0); MEAN PLATELET VOLUME 9.7 fL (7.4-10.4); MONOCYTES 1.3 % (2-11); NEUTROPHILS 88.3 % (40-80); PLATELET COUNT 212 10x3/uL (130-400); RBC 4.07 10x6/uL (4.20-6.10); RDW 14.8 % (11.5-14.5); WBC 11.3 10x3/uL (4.8-10.8)
[2020-08-19 07:06] LABS: ALBUMIN 1.4 g/dL (3.4-5.0); ALKALINE PHOSPHATASE 96 U/L (30-120); BILIRUBIN - TOTAL 0.54 mg/dL (0.2-1.3); CALC OSMOLALITY 273 mosm/kg (275-300); CALCIUM 7.8 mg/dL (8.5-10.1); CARBON DIOXIDE 24.4 mmol/L (21.0-32.0); CHLORIDE - SERUM 104 mmol/L (98-107); CREATININE - SERUM 0.8 mg/dL (0.6-1.3); GLUCOSE 105 mg/dL (74-106); POTASSIUM - SERUM 4.4 mmol/L (3.5-5.1); PROTEIN - SERUM 5.7 g/dL (6.4-8.2); SODIUM 135 mmol/L (136-145); UREA NITROGEN 23 mg/dL (7-18); VANCOMYCIN - RANDOM 5.2 ug/mL (10.0-20.0); eGFR NON AFRICAN AMERICAN > 90 mL/min (90-120)
[2020-08-19 07:12] LABS: ALT (SGPT) 58 U/L (10-68)
--- NOTE | 2020-08-19 07:34 | NUR ---
AM ROUNDS WITH DR. BALDWIN. PT RESTING COMFORTABLY IN BED, WITH EYES CLOSED, EASILY AROUSES TO VOICE. RESP EVEN AND NONLABORED ON 13HF. RT HAND INFUSING NS AT 100CC/HR. SR 77 ON TELE. SCDS ON BILAT. PT TO BE NPO AFTER MIDNIGHT FOR POSSIBLE BRONCH IN AM WITH DR. STARKS. PT DENIES ANY NEEDS AT THIS TIME. SPOUSE AT BEDSIDE, CALL LIGHT IN REACH, WILL CONTINUE PLAN OF CARE.
[2020-08-19 08:13] VITALS: BP 130/67
[2020-08-19 12:00] VITALS: BP 135/61
--- NOTE | 2020-08-19 12:22 | NUR ---
PT RESTING COMFORTABLY IN BED, DENIES ANY NEEDS, SPOUSE AT BEDSIDE, CALL LIGHT IN REACH.
[2020-08-19 16:00] VITALS: BP 130/65
--- NOTE | 2020-08-19 19:31 | NUR ---
RECEIVED REPORT, WILL ASSUME CARE OF PT, DENIES ANY NEEDS AT THIS TIME, BED IS LOW, SRX2, CALL LIGHT IN REACH, WILL CONTINUE PLAN OF CARE, AT BED SIDE,
[2020-08-19 20:00] VITALS: BP 108/60
[2020-08-20 00:13] VITALS: BP 152/65
[2020-08-20 04:00] VITALS: BP 126/96
[2020-08-20 06:29] LABS: HEMOGLOBIN 12.6 g/dL (13.5-17.5); MCH 31.4 pg (26.0-34.0); MCHC 33.2 g/dL (31.0-37.0); MCV 94.6 fL (80.0-100.0); MEAN PLATELET VOLUME 8.8 fL (7.4-10.4); PLATELET COUNT 249 10x3/uL (130-400); RBC 4.02 10x6/uL (4.20-6.10); RDW 14.6 % (11.5-14.5); WBC 10.8 10x3/uL (4.8-10.8)
[2020-08-20 06:56] LABS: ALBUMIN 1.5 g/dL (3.4-5.0); ALKALINE PHOSPHATASE 93 U/L (30-120); ALT (SGPT) 47 U/L (10-68); BILIRUBIN - TOTAL 0.52 mg/dL (0.2-1.3); CALC OSMOLALITY 276 mosm/kg (275-300); CALCIUM 7.9 mg/dL (8.5-10.1); CARBON DIOXIDE 26.4 mmol/L (21.0-32.0); CHLORIDE - SERUM 105 mmol/L (98-107); CREATININE - SERUM 0.8 mg/dL (0.6-1.3); GLUCOSE 103 mg/dL (74-106); POTASSIUM - SERUM 4.5 mmol/L (3.5-5.1); PROTEIN - SERUM 5.6 g/dL (6.4-8.2); SODIUM 137 mmol/L (136-145); UREA NITROGEN 20 mg/dL (7-18); VANCOMYCIN - RANDOM 16.4 ug/mL (10.0-20.0); eGFR NON AFRICAN AMERICAN > 90 mL/min (90-120)
[2020-08-20 09:00] VITALS: BP 167/69
--- NOTE | 2020-08-20 10:48 | NUR ---
BRONCH CANCELED FOR TODAY. BREAKFAST TRAY ORERED FOR PT.
[2020-08-20 12:50] VITALS: BP 155/66
[2020-08-20 14:08] LABS: HYPOCHROMASIA OCC; LYMPHOCYTES 9 % (15-50); MONOCYTES 9 % (2-11); NEUTROPHILS 76 % (40-80); PLATELET ESTIMATE NORMAL; ROULEAUX OCC
[2020-08-20 14:18] VITALS: Ht 182.9 cm; Wt 99.8 kg
[2020-08-20 16:18] VITALS: BP 143/58
[2020-08-20 20:00] VITALS: BP 140/61
[2020-08-21] VITALS: BP 153/69
--- NOTE | 2020-08-21 03:18 | NUR ---
I have reviewed this patient and I concur with the Shift Assessment completed by the Licensed Practical Nurse today this shift.
--- NOTE | 2020-08-21 03:49 | NUR ---
PT 22G IN RFA INFILTRATED. NEW 20G IV IN LFA ESTABLISHED X2 STICK. PT BUE +3 PITTING EDEMA. PT A/O X4 VSS. RR E/U . NO S/S OF DISTRESS AT THIS TIME. WILL CONTINUE TO MONITOR.
[2020-08-21 04:00] VITALS: BP 166/71
[2020-08-21 04:24] LABS: BASOPHILS 0.3 % (0-2); EOSINOPHILS 1.3 % (0-7); HEMATOCRIT 37.3 % (42.0-54.0); HEMOGLOBIN 12.5 g/dL (13.5-17.5); LYMPHOCYTES 10.8 % (15-50); MCH 31.7 pg (26.0-34.0); MCHC 33.5 g/dL (31.0-37.0); MCV 94.7 fL (80.0-100.0); MEAN PLATELET VOLUME 8.8 fL (7.4-10.4); MONOCYTES 3.7 % (2-11); NEUTROPHILS 83.9 % (40-80); PLATELET COUNT 261 10x3/uL (130-400); RBC 3.93 10x6/uL (4.20-6.10); RDW 14.4 % (11.5-14.5); WBC 10.3 10x3/uL (4.8-10.8)
[2020-08-21 04:54] LABS: ALBUMIN 1.5 g/dL (3.4-5.0); ALKALINE PHOSPHATASE 86 U/L (30-120); ALT (SGPT) 47 U/L (10-68); CALC OSMOLALITY 278 mosm/kg (275-300); CALCIUM 7.9 mg/dL (8.5-10.1); CARBON DIOXIDE 27.4 mmol/L (21.0-32.0); CHLORIDE - SERUM 105 mmol/L (98-107); GLUCOSE 112 mg/dL (74-106); POTASSIUM - SERUM 4.3 mmol/L (3.5-5.1); PROTEIN - SERUM 5.6 g/dL (6.4-8.2); SODIUM 138 mmol/L (136-145); UREA NITROGEN 18 mg/dL (7-18); eGFR NON AFRICAN AMERICAN 77 mL/min (90-120)
[2020-08-21 08:14] VITALS: BP 145/66
--- NOTE | 2020-08-21 08:40 | NUR ---
AM MEDS GIVEN AT THIS TIME. PT SITTING UP IN BED EATING BREAKFAST. RR EVEN NON LABORED, O2 IN PLACE. PT AWAKE AND ALERT, ATBEDSIDE. NO PAIN OR NEEDS VOICED. PT STATES TO HAVE BEEN PASSING FLATUS AND STATES HE FEELS IF THE MEDICATION TO AIDE IN A BM IS HELPING. CLWR.
[2020-08-21 11:37] VITALS: BP 121/60
[2020-08-21 16:00] VITALS: BP 131/56
--- NOTE | 2020-08-21 18:38 | MORECARE ---
CASE MANAGEMENT DISCHARGE SUMMARY PATIENT: YOSI DENISE UNIT: [id number] ADM DATE: 08/13/20 AGE: 79 : 42 SEX: M ROOM/BED: D.8672 AUTHOR: GENESIS LAM PHYSICIAN: REFERRING PHYSICIAN: BINA KEENE MD DATE OF SERVICE: 08/21/20 Case Management Discharge Planning Summary COMMENTS ENTERED DATE: 08/21/20 18:36 CT COMMENT TYPE: Discharge Planning REVIEWER: Manjit Eubanks CM met with patient to complete DC plan and to evaluate needs. Patient lives independently with his spouse, Taylor Denise, . 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 Patient's spouse is at bedside and commented that the patient's oxygen is high for DC. Current O2 flow rate is 13L. Patient stated that his home is safe and has electricity and running water. Patient denies mobility problems. Patient stated that he has no problems paying for medications and he fills his medications at [facility] pharmacy on [address] [facility] [address]. Patient stated that his primary care physician is Dr. Brian George. At discharge, the patient plans to return home and feels this is a safe discharge. CM discussed availability of home health, rehab services, and medical equipment. Patient stated that his has a BSC, Walker, and Wheelchair at home that he can use should he need them. Patient declined HHS at this time, SNF, and IPR, but if needed at DC, the patient chooses [facility] for Oxygen. AKIL denial for HHS and choice for [facility] signed and placed in chart. Patient voiced no other needs at this time and is satisfied with DC plan. Transportation provider at discharge will be with his , Taylor. DC IMM delivered, explained, signed by the patient, and placed in chart. Signed form also left with the patient. CM will continue to follow and will assist as needed with dc plans/needs. DCP REVIEW SUMMARY ANTICIPATED D/C DATE: EXPECTED LOS : CASE STATUS: DCP Initiated INITIAL REVIEW: 08/13/2020 INITIAL REVIEWER: Manjit Eubanks FINAL DISCHARGE DISPOSITION: : FINAL REVIEWER: FINAL REVIEW DATE: DCP Focus Questions & Answers DCP Evaluation QUESTION: ANSWER Patient gives permission to discuss discharge plans with: (name, relationship and number) : his spouse, Taylor Denise, Patient's ability to cope with chronic illness : d. No chronic illness Patient's current cognitive status: : *Oriented to person, place, situation, time and present Family / Caregiver's ability to cope with chronic illness: : a. Adequate (ability to meet patient's medical needs, ensures patient attends medical appts.) Patient and/or caregiver agree upon recommended discharge plan? : Yes Physical Status: : Independent with ADL's Family / Caregiver's ability to cope with chronic illness: : a. Adequate (ability to meet patient's medical needs, ensures patient attends medical appts.) Functional screen assessment: : Basic needs can adequately be met by self Does the patient have the ability to pay for or attain post discharge needs / services? : Yes Living Arrangements: : Home with Spouse/Significant Other Is there a likelihood that the patient will require additional services to return to the preadmission environment? : Yes Equipment needed for post hospitalization: : Home Oxygen with Nasal Cannula Baseline cognitive status: : *Oriented to person, place, situation, time and present Patient with capacity for self-care or can be cared for in same environment as prior to hospitalization? : Yes Physical environment modification needed / anticipated for discharge: : No Medication Management: : Patient states can afford medications Medication Management: : Patient states can read and understand medication labels Pharmacy name(s): : [facility] Does Patient have transportation to get home and to follow-up medical appointments when discharged from the hospital? : Yes Would patient like to participate in any Care Coordination programs (if applicable): : Not applicable Does the patient have electricity at home? : Yes Does the patient have running water in their house? : Yes Equipment in use: : None Mental health screen: : No mental health history DCP Re-evaluation QUESTION: ANSWER Would patient like to participate in any Care Coordination programs (if applicable): : Not applicable PATIENT: YOSI DENISE ENCOUNTER: [id number] MEDICAL RECORD#: [id number] ADMISSION DATE: 08/13/2020 DISCHARGE DATE: ATTENDING MD: BINA GALLARDO : AGE: 79 MARITAL STATUS: M DC PLAN ID: [id number] FACILITY: [facility] PRINTED ON: 08/21/20 18:38 CT All edits/amendments must be made on the electronic document DICTATION DATE: 08/21/201837 BRAKES INSPECTOR: DANIEL 08/21/201837 RPT#: [id number] DC DATE: STATUS: ADM IN [facility] [address] [place] [address] END OF REPORT
--- NOTE | 2020-08-21 19:02 | MORECARE ---
CASE MANAGEMENT DISCHARGE SUMMARY PATIENT: YOSI DENISE UNIT: [id number] ADM DATE: 08/13/20 AGE: 79 : 42 SEX: M ROOM/BED: D.0892 AUTHOR: GENESIS LAM PHYSICIAN: REFERRING PHYSICIAN: BINA KEENE MD DATE OF SERVICE: 08/21/20 Case Management Discharge Planning Summary COMMENTS ENTERED DATE: 08/21/20 18:36 CT COMMENT TYPE: Discharge Planning REVIEWER: Manjit Eubanks CM met with patient to complete DC plan and to evaluate needs. Patient lives independently with his spouse, Taylor Denise, . 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 Patient's spouse is at bedside and commented that the patient's oxygen is high for DC. Current O2 flow rate is 13L. Patient stated that his home is safe and has electricity and running water. Patient denies mobility problems. Patient stated that he has no problems paying for medications and he fills his medications at [facility] pharmacy on [address]. Patient stated that his primary care physician is Dr. Brian George. At discharge, the patient plans to return home and feels this is a safe discharge. CM discussed availability of home health, rehab services, and medical equipment. Patient stated that his has a BSC, Walker, and Wheelchair at home that he can use should he need them. Patient declined HHS at this time, SNF, and IPR, but if needed at DC, the patient chooses [facility] for Oxygen. AKIL denial for HHS and choice for [facility] signed and placed in chart. Patient voiced no other needs at this time and is satisfied with DC plan. Transportation provider at discharge will be with his , Taylor. DC IMM delivered, explained, signed by the patient, and placed in chart. Signed form also left with the patient. CM will continue to follow and will assist as needed with dc plans/needs. DCP REVIEW SUMMARY ANTICIPATED D/C DATE: EXPECTED LOS : CASE STATUS: DCP Initiated INITIAL REVIEW: 08/13/2020 INITIAL REVIEWER: Manjit Eubanks FINAL DISCHARGE DISPOSITION: : FINAL REVIEWER: FINAL REVIEW DATE: DCP Focus Questions & Answers DCP Evaluation QUESTION: ANSWER Patient gives permission to discuss discharge plans with: (name, relationship and number) : his spouse, Taylor Denise, Patient's ability to cope with chronic illness : d. No chronic illness Patient's current cognitive status: : *Oriented to person, place, situation, time and present Family / Caregiver's ability to cope with chronic illness: : a. Adequate (ability to meet patient's medical needs, ensures patient attends medical appts.) Patient and/or caregiver agree upon recommended discharge plan? : Yes Physical Status: : Independent with ADL's Family / Caregiver's ability to cope with chronic illness: : a. Adequate (ability to meet patient's medical needs, ensures patient attends medical appts.) Functional screen assessment: : Basic needs can adequately be met by self Does the patient have the ability to pay for or attain post discharge needs / services? : Yes Living Arrangements: : Home with Spouse/Significant Other Is there a likelihood that the patient will require additional services to return to the preadmission environment? : Yes Equipment needed for post hospitalization: : Home Oxygen with Nasal Cannula Baseline cognitive status: : *Oriented to person, place, situation, time and present Patient with capacity for self-care or can be cared for in same environment as prior to hospitalization? : Yes Physical environment modification needed / anticipated for discharge: : No Medication Management: : Patient states can afford medications Medication Management: : Patient states can read and understand medication labels Pharmacy name(s): : [facility] Does Patient have transportation to get home and to follow-up medical appointments when discharged from the hospital? : Yes Would patient like to participate in any Care Coordination programs (if applicable): : Not applicable Does the patient have electricity at home? : Yes Does the patient have running water in their house? : Yes Equipment in use: : None Mental health screen: : No mental health history DCP Re-evaluation QUESTION: ANSWER Would patient like to participate in any Care Coordination programs (if applicable): : Not applicable PATIENT: YOSI DENISE ENCOUNTER: [id number] MEDICAL RECORD#: [id number] ADMISSION DATE: 08/13/2020 DISCHARGE DATE: ATTENDING MD: BINA GALLARDO : AGE: 79 MARITAL STATUS: M DC PLAN ID: [id number] FACILITY: [facility] PRINTED ON: 08/21/20 19:02 CT All edits/amendments must be made on the electronic document DICTATION DATE: 08/21/201901 LIQUOR STORE MANAGER: DANIEL 08/21/201901 RPT#: [id number] DC DATE: STATUS: ADM IN [facility] [address] [place] [address] END OF REPORT
[2020-08-21 20:00] VITALS: BP 124/58
--- NOTE | 2020-08-21 23:35 | NUR ---
PT ON BEDPAN HAS HAD SMALL BM. WILL CONTINUE MONITOR.
[2020-08-22] VITALS: BP 173/74
--- NOTE | 2020-08-22 01:02 | NUR ---
I have reviewed this patient and I concur with the Shift Assessment completed by the Licensed Practical Nurse today this shift.
[2020-08-22 04:00] VITALS: BP 155/80
[2020-08-22 06:26] LABS: HEMATOCRIT 40.1 % (42.0-54.0); HEMOGLOBIN 13.1 g/dL (13.5-17.5); MCH 31.4 pg (26.0-34.0); MCHC 32.6 g/dL (31.0-37.0); MCV 96.3 fL (80.0-100.0); MEAN PLATELET VOLUME 8.8 fL (7.4-10.4); PLATELET COUNT 288 10x3/uL (130-400); RBC 4.17 10x6/uL (4.20-6.10); RDW 14.9 % (11.5-14.5); WBC 10.6 10x3/uL (4.8-10.8)
[2020-08-22 07:08] LABS: ALBUMIN 1.8 g/dL (3.4-5.0); ALKALINE PHOSPHATASE 94 U/L (30-120); ALT (SGPT) 43 U/L (10-68); BILIRUBIN - TOTAL 0.35 mg/dL (0.2-1.3); CALC OSMOLALITY 282 mosm/kg (275-300); CALCIUM 8.5 mg/dL (8.5-10.1); CARBON DIOXIDE 29.6 mmol/L (21.0-32.0); CHLORIDE - SERUM 104 mmol/L (98-107); GLUCOSE 119 mg/dL (74-106); POTASSIUM - SERUM 4.7 mmol/L (3.5-5.1); PROTEIN - SERUM 6.5 g/dL (6.4-8.2); SODIUM 140 mmol/L (136-145); UREA NITROGEN 21 mg/dL (7-18); eGFR NON AFRICAN AMERICAN 77 mL/min (90-120)
[2020-08-22 09:00] VITALS: BP 147/80
--- NOTE | 2020-08-22 09:32 | NUR ---
NOTIFIED LOUIE REEVES REGARDING HAVING NO IV ACCESS AT THIS TIME. WILL GIVE IV ANTIBIOTICS LATE WHEN IV IS ESTABLISHED.
--- NOTE | 2020-08-22 09:42 | NUR ---
AM PO MEDS GIVEN AT THIS TIME. PT AWAKE AND ALERT, RR EVEN NON LABORED. O2 IN PLACE VIA NC. TITRATION TO 5L NC NOTED. O2 93% PER CONTINIOUS O2 MONITOR. AT BEDSIDE. NO NEEDS OR PAIN VOICED. CLWR.
[2020-08-22 12:00] VITALS: BP 100/52
[2020-08-22 12:43] LABS: ANISOCYTOSIS OCC; LYMPHOCYTES 6 % (15-50); MONOCYTES 6 % (2-11); NEUTROPHILS 87 % (40-80); PLATELET ESTIMATE NORMAL
[2020-08-22 20:00] VITALS: BP 114/46
[2020-08-23] VITALS: BP 121/59
[2020-08-23 05:38] VITALS: BP 166/79
[2020-08-23 07:26] LABS: BASOPHILS 0.2 % (0-2); EOSINOPHILS 0.1 % (0-7); HEMATOCRIT 38.9 % (42.0-54.0); HEMOGLOBIN 12.6 g/dL (13.5-17.5); MCH 31.3 pg (26.0-34.0); MCHC 32.4 g/dL (31.0-37.0); MCV 96.6 fL (80.0-100.0); MEAN PLATELET VOLUME 8.6 fL (7.4-10.4); MONOCYTES 3.3 % (2-11); NEUTROPHILS 88.4 % (40-80); PLATELET COUNT 258 10x3/uL (130-400); RBC 4.03 10x6/uL (4.20-6.10); RDW 14.8 % (11.5-14.5); WBC 11.7 10x3/uL (4.8-10.8)
[2020-08-23 07:51] LABS: ALBUMIN 1.8 g/dL (3.4-5.0); ALKALINE PHOSPHATASE 82 U/L (30-120); ALT (SGPT) 39 U/L (10-68); BILIRUBIN - TOTAL 0.36 mg/dL (0.2-1.3); CALC OSMOLALITY 282 mosm/kg (275-300); CALCIUM 8.1 mg/dL (8.5-10.1); CARBON DIOXIDE 29.6 mmol/L (21.0-32.0); CHLORIDE - SERUM 107 mmol/L (98-107); CREATININE - SERUM 0.9 mg/dL (0.6-1.3); GLUCOSE 109 mg/dL (74-106); POTASSIUM - SERUM 4.9 mmol/L (3.5-5.1); PROTEIN - SERUM 5.6 g/dL (6.4-8.2); SODIUM 139 mmol/L (136-145); UREA NITROGEN 25 mg/dL (7-18); eGFR NON AFRICAN AMERICAN 87 mL/min (90-120)
--- NOTE | 2020-08-23 08:19 | NUR ---
PT AWAKE AND ALERT, TALKATIVE THIS MORNING. PT STATES HE IS READY TO GO HOME, ENCOURAGED PT REGARDING TREATMENT AND PLAN. IV INFUSING WITHOUT COMPLICATIONS. RIGHT ARM ELEVATED, RR EVEN NON LABORED, NO WORK OF BREATHING NOTED. O2 IN PLACE. AT BEDSIDE. NO PAIN OR NEEDS VOICED. CLWR .
[2020-08-23 08:50] VITALS: BP 123/57
--- NOTE | 2020-08-23 09:43 | NUR ---
BED BATH GIVEN AT THIS TIME WITH PT ON BSC, PT HAD BM X1. RR EVEN NON LABORED, NO DYSPNEA NOTED DURING ACTIVITY. LINENS CHANGED. O2 IN PLACE VIA NC. NO FURTHER NEEDS VOICED. CLWR.
[2020-08-23 13:00] VITALS: BP 120/67
--- NOTE | 2020-08-23 13:32 | NUR ---
Nutrition Reassessment/Follow-up: Eating well. Diet: Regular PO intake: 75-100% Wt: 219# (08/21) Labs noted: Glu 109, Ca 8.1, Alb 1.8 Meds noted: Lactulose, Solumedrol, Miralax, Colace, Florajen, NS @ 100 Nutrition Diagnosis: -Altered nutrition-related lab values R/T respiratory illness on steroids AEB elev Glu. Nutrition Goals: -PO intake >=75% avg of meals/snacks. -Meet est fluid needs without fluid overload. -Stable dry wt. -Glu at or near normal. Nutrition Intervention: -Nutrition needs unchanged since initial assessment. -Encourage PO intake and honor food preferences within diet restrictions. -Monitor Glu. -Monitor wt. -RD will follow up within 7 days.
[2020-08-23 15:00] VITALS: BP 105/41
[2020-08-23 21:34] VITALS: BP 119/53
--- NOTE | 2020-08-24 03:17 | NUR ---
I have reviewed this patient and I concur with the Shift Assessment completed by the Licensed Practical Nurse today this shift.
[2020-08-24 05:20] LABS: BASOPHILS 0.4 % (0-2); EOSINOPHILS 0.2 % (0-7); HEMATOCRIT 36.7 % (42.0-54.0); HEMOGLOBIN 12.3 g/dL (13.5-17.5); LYMPHOCYTES 15.4 % (15-50); MCH 31.7 pg (26.0-34.0); MCHC 33.4 g/dL (31.0-37.0); MEAN PLATELET VOLUME 8.8 fL (7.4-10.4); MONOCYTES 5.2 % (2-11); NEUTROPHILS 78.8 % (40-80); PLATELET COUNT 212 10x3/uL (130-400); RBC 3.87 10x6/uL (4.20-6.10); RDW 14.7 % (11.5-14.5); WBC 10.2 10x3/uL (4.8-10.8)
[2020-08-24 05:44] LABS: ALBUMIN 1.8 g/dL (3.4-5.0); BILIRUBIN - TOTAL 0.28 mg/dL (0.2-1.3); CALCIUM 8.1 mg/dL (8.5-10.1); CARBON DIOXIDE 30.5 mmol/L (21.0-32.0); CREATININE - SERUM 1.1 mg/dL (0.6-1.3); POTASSIUM - SERUM 4.5 mmol/L (3.5-5.1); PROTEIN - SERUM 5.9 g/dL (6.4-8.2)
[2020-08-24 09:00] VITALS: BP 132/62
[2020-08-24] MEDS ORDERED: VIBRAMYCIN 100100 MG PO (09:58)
[2020-08-24] MEDS ORDERED: TESSALON PERLE100 MG PO (09:59)
[2020-08-24] MEDS ORDERED: BETAPACE 80 MG80 MG PO (09:59)
[2020-08-24] MEDS ORDERED: FLORAJEN DIGES1 EACH PO (10:00)
[2020-08-24] MEDS ORDERED: COLACE100 MG PO (10:00)
[2020-08-24] MEDS ORDERED: SINGULAIR10 MG PO (10:00)
[2020-08-24] MEDS ORDERED: PULMICORT0.5 MG/21 UPD (10:00)
[2020-08-24] MEDS ORDERED: FLUTICASONE PRO16 GM NASAL (10:00)
[2020-08-24] MEDS ORDERED: MIRALAX17 GM PO (10:00)
[2020-08-24] MEDS ORDERED: PREDNISONE10 MG PO (10:01)
[2020-08-24] MEDS ORDERED: Xopenex 0.63 MG INH UPD (10:02)
[2020-08-24] MEDS ORDERED: Saline Mist NASAL SP NASAL (10:02)
[2020-08-24 12:00] VITALS: BP 105/65
--- NOTE | 2020-08-24 13:47 | MORECARE ---
CASE MANAGEMENT DISCHARGE SUMMARY PATIENT: YOSI DENISE UNIT: [id number] ADM DATE: 08/13/20 AGE: 79 : 42 SEX: M ROOM/BED: D.3662 AUTHOR: GENESIS LAM PHYSICIAN: REFERRING PHYSICIAN: BINA KEENE MD DATE OF SERVICE: 08/24/20 Case Management Discharge Planning Summary COMMENTS ENTERED DATE: 08/21/20 18:36 CT COMMENT TYPE: Discharge Planning REVIEWER: Manjit Eubanks CM met with patient to complete DC plan and to evaluate needs. Patient lives independently with his spouse, Taylor Denise, . 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 Patient's spouse is at bedside and commented that the patient's oxygen is high for DC. Current O2 flow rate is 13L. Patient stated that his home is safe and has electricity and running water. Patient denies mobility problems. Patient stated that he has no problems paying for medications and he fills his medications at [facility] pharmacy on [address]. Patient stated that his primary care physician is Dr. Brian George. At discharge, the patient plans to return home and feels this is a safe discharge. CM discussed availability of home health, rehab services, and medical equipment. Patient stated that his has a BSC, Walker, and Wheelchair at home that he can use should he need them. Patient declined HHS at this time, SNF, and IPR, but if needed at DC, the patient chooses [facility] for Oxygen. AKIL denial for HHS and choice for [facility] signed and placed in chart. Patient voiced no other needs at this time and is satisfied with DC plan. Transportation provider at discharge will be with his , Taylor. DC IMM delivered, explained, signed by the patient, and placed in chart. Signed form also left with the patient. CM will continue to follow and will assist as needed with dc plans/needs. DCP REVIEW SUMMARY ANTICIPATED D/C DATE: 08/24/2020 EXPECTED LOS : 11 CASE STATUS: DCP Initiated INITIAL REVIEW: 08/13/2020 INITIAL REVIEWER: Manjit Eubanks FINAL DISCHARGE DISPOSITION: : FINAL REVIEWER: FINAL REVIEW DATE: DCP Focus Questions & Answers DCP Evaluation QUESTION: ANSWER Patient and/or caregiver agree upon recommended discharge plan? : Yes Family / Caregiver's ability to cope with chronic illness: : a. Adequate (ability to meet patient's medical needs, ensures patient attends medical appts.) Patient's current cognitive status: : *Oriented to person, place, situation, time and present Patient's ability to cope with chronic illness : d. No chronic illness Patient gives permission to discuss discharge plans with: (name, relationship and number) : his spouse, Taylor Denise, Does the patient have the ability to pay for or attain post discharge needs / services? : Yes Functional screen assessment: : Basic needs can adequately be met by self Family / Caregiver's ability to cope with chronic illness: : a. Adequate (ability to meet patient's medical needs, ensures patient attends medical appts.) Physical Status: : Independent with ADL's Equipment needed for post hospitalization: : Home Oxygen with Nasal Cannula Is there a likelihood that the patient will require additional services to return to the preadmission environment? : Yes Living Arrangements: : Home with Spouse/Significant Other Patient with capacity for self-care or can be cared for in same environment as prior to hospitalization? : Yes Baseline cognitive status: : *Oriented to person, place, situation, time and present Physical environment modification needed / anticipated for discharge: : No Medication Management: : Patient states can read and understand medication labels Medication Management: : Patient states can afford medications Pharmacy name(s): : [facility] Does Patient have transportation to get home and to follow-up medical appointments when discharged from the hospital? : Yes Would patient like to participate in any Care Coordination programs (if applicable): : Not applicable Does the patient have electricity at home? : Yes Does the patient have running water in their house? : Yes Equipment in use: : None Mental health screen: : No mental health history DCP Re-evaluation QUESTION: ANSWER Would patient like to participate in any Care Coordination programs (if applicable): : Not applicable PATIENT: YOSI DENISE ENCOUNTER: [id number] MEDICAL RECORD#: [id number] ADMISSION DATE: 08/13/2020 DISCHARGE DATE: ATTENDING MD: BINA GALLARDO : AGE: 79 MARITAL STATUS: M DC PLAN ID: [id number] FACILITY: [facility] PRINTED ON: 08/24/20 13:47 CT All edits/amendments must be made on the electronic document DICTATION DATE: 08/24/201346 REVIVAL CLERK: DANIEL 08/24/201346 RPT#: [id number] DC DATE: STATUS: ADM IN [facility] [address] [place] [address] END OF REPORT
--- NOTE | 2020-08-24 13:59 | MORECARE ---
CASE MANAGEMENT DISCHARGE SUMMARY PATIENT: YOSI DENISE UNIT: [id number] ADM DATE: 08/13/20 AGE: 79 : 44 SEX: M ROOM/BED: D.2132 AUTHOR: CAROLE,DOC PHYSICIAN: REFERRING PHYSICIAN: BINA KEENE MD DATE OF SERVICE: 08/24/20 Case Management Discharge Planning Summary COMMENTS ENTERED DATE: 08/24/20 13:41 CT COMMENT TYPE: Discharge Planning REVIEWER: Heather Gonzalez PT DISCHARGED TODAY, GOING HOME ON OXYGEN WITH [facility]. ORDERS SENT FOR HOME OXYGEN UNIT, PORTABLE AND NEBULIZER WITH [facility]. IMM AND AKIL FORMSSERVED, SIGNED AND COPY TO CHART. ENTERED DATE: 08/21/20 18:36 CT COMMENT TYPE: Discharge Planning REVIEWER: Manjit Eubanks CM met with patient to complete DC plan and to evaluate needs. Patient lives independently with his spouse, Taylor Denise, . 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 Patient's spouse is at bedside and commented that the patient's oxygen is high for DC. Current O2 flow rate is 13L. Patient stated that his home is safe and has electricity and running water. Patient denies mobility problems. Patient stated that he has no problems paying for medications and he fills his medications at [facility] pharmacy on [address] [facility]. Patient stated that his primary care physician is Dr. Brian George. At discharge, the patient plans to return home and feels this is a safe discharge. CM discussed availability of home health, rehab services, and medical equipment. Patient stated that his has a BSC, Walker, and Wheelchair at home that he can use should he need them. Patient declined HHS at this time, SNF, and IPR, but if needed at DC, the patient chooses [facility] for Oxygen. AKIL denial for HHS and choice for [facility] signed and placed in chart. Patient voiced no other needs at this time and is satisfied with DC plan. Transportation provider at discharge will be with his , Taylor. DC IMM delivered, explained, signed by the patient, and placed in chart. Signed form also left with the patient. CM will continue to follow and will assist as needed with dc plans/needs. DCP REVIEW SUMMARY ANTICIPATED D/C DATE: 08/24/2020 EXPECTED LOS : 11 CASE STATUS: DCP Initiated INITIAL REVIEW: 08/13/2020 INITIAL REVIEWER: Manjit Eubanks FINAL DISCHARGE DISPOSITION: : FINAL REVIEWER: FINAL REVIEW DATE: DCP Focus Questions & Answers DCP Evaluation QUESTION: ANSWER Patient and/or caregiver agree upon recommended discharge plan? : Yes Family / Caregiver's ability to cope with chronic illness: : a. Adequate (ability to meet patient's medical needs, ensures patient attends medical appts.) Patient's current cognitive status: : *Oriented to person, place, situation, time and present Patient's ability to cope with chronic illness : d. No chronic illness Patient gives permission to discuss discharge plans with: (name, relationship and number) : his spouse, Taylor Denise, Does the patient have the ability to pay for or attain post discharge needs / services? : Yes Functional screen assessment: : Basic needs can adequately be met by self Family / Caregiver's ability to cope with chronic illness: : a. Adequate (ability to meet patient's medical needs, ensures patient attends medical appts.) Physical Status: : Independent with ADL's Equipment needed for post hospitalization: : Home Oxygen with Nasal Cannula Is there a likelihood that the patient will require additional services to return to the preadmission environment? : Yes Living Arrangements: : Home with Spouse/Significant Other Patient with capacity for self-care or can be cared for in same environment as prior to hospitalization? : Yes Baseline cognitive status: : *Oriented to person, place, situation, time and present Physical environment modification needed / anticipated for discharge: : No Medication Management: : Patient states can read and understand medication labels Medication Management: : Patient states can afford medications Pharmacy name(s): : [facility] Does Patient have transportation to get home and to follow-up medical appointments when discharged from the hospital? : Yes Would patient like to participate in any Care Coordination programs (if applicable): : Not applicable Does the patient have electricity at home? : Yes Does the patient have running water in their house? : Yes Equipment in use: : None Mental health screen: : No mental health history DCP Re-evaluation QUESTION: ANSWER Would patient like to participate in any Care Coordination programs (if applicable): : Not applicable PATIENT: YOSI DENISE ENCOUNTER: [id number] MEDICAL RECORD#: [id number] ADMISSION DATE: 08/13/2020 DISCHARGE DATE: ATTENDING MD: BINA GALLARDO : AGE: 79 MARITAL STATUS: M DC PLAN ID: [id number] FACILITY: [facility] PRINTED ON: 08/24/20 13:59 CT All edits/amendments must be made on the electronic document DICTATION DATE: 08/24/20 135 POLISHER SAND: DANIEL 08/24/20 1359 RPT#: [id number] DC DATE: STATUS: ADM IN [facility] [address] [place] [address] END OF REPORT
--- NOTE | 2020-08-24 14:43 | NUR ---
CALLED IN [facility] TO [facility]/[address] SPOKE WITH MALIHA/PHARMCIST
--- NOTE | 2020-08-24 15:11 | NUR ---
DISCHARGE INSTRUCTIONS WITH PATIENT AND . TO CAR VIA W/C.
== END 2020-08-24 15:12 | disposition home or self-care (01) | DRG 193 ==
LOC: D.ER 01:35 → D.EDHOLD 04:00 → D.ICU 04:00 → D.M2 04:00 → D.ICU 08:22 → D.M2 08-14 16:33
PROVIDERS: Emergency Medicine; Family Medicine; ADMIT Emergency Medicine; ATTEND Emergency Medicine
DX: J18.9 Pneumonia, unspecified organism (principal); J96.01 Acute respiratory failure with hypoxia; I21.A1 Myocardial infarction type 2; N17.9 Acute kidney failure, unspecified; E87.1 Hypo-osmolality and hyponatremia; I48.92 Unspecified atrial flutter; R04.2 Hemoptysis; Z20.822 Contact with and (suspected) exposure to COVID-19; I25.10 Atherosclerotic heart disease of native coronary artery without angina pectoris; I10 Essential (primary) hypertension; E78.5 Hyperlipidemia, unspecified; J43.9 Emphysema, unspecified; I48.91 Unspecified atrial fibrillation; Z87.891 Personal history of nicotine dependence